=== PATIENT | male | born 1970 | race African-American/Black ===

== ENCOUNTER 2016-11-10 14:35 | Inpatient (IN) | payer BC, OTHER ==
[~2016-11-10] VITALS: Ht 172.7 cm; Wt 63.0 kg
[~2016-11-10 14:35] MED LIST: UNKNOWN BP MEDS
[2016-11-10] MEDS ORDERED: SODIUM CHLORIDE 0.9% 1,000 ML IV ONE (15:24)
[2016-11-10] MEDS ORDERED: PIPERACILLIN/TAZ 3.375G PREMIX 50 ML IV ONE (15:30)
[2016-11-10] MEDS ORDERED: METRONIDAZOLE 500 MG PREMIX 100 ML IV ONE (15:30)
[2016-11-10 15:50] LABS: BASOPHILS % 0.8 % (0.0-2.0); DIFFERENTIAL COMMENT 0; EOSINOPHILS % 0.2 % (0.0-5.0); HEMATOCRIT. 35.2 % (42.0-52.0); HEMOGLOBIN. 12.1 g/dL (14.0-18.0); LYMPHOCYTES % 24.6 % (20.0-50.0); MEAN CORPUSCULAR HEMOGLOBIN 34.4 pg (28.0-32.0); MEAN CORPUSCULAR HGB CONC 34.3 g/dL (31.0-37.0); MEAN CORPUSCULAR VOLUME 100.1 fL (80.0-94.0); MEAN PLATELET VOLUME 8.5 fl (7.4-10.4); MONOCYTES % 13.7 % (2.0-8.0); NEUTROPHILS % 60.7 % (40.0-76.0); PLATELET 193 x1000/uL (130-400); RED BLOOD CELL COUNT 3.52 mill/uL (4.7-6.1); RED CELL DISTRIBUTION WIDTH 15.2 % (11.6-14.6)
[2016-11-10 15:55] LABS: PROTHROMBIN TIME 10.5 sec
[2016-11-10 15:57] LABS: ALBUMIN 2.8 g/dL (3.4-5.0); ANION GAP 13; CALCIUM 8.4 mg/dL (8.5-10.1); CARBON DIOXIDE 28 mEq/L (21-32); CHLORIDE 104 mEq/L (98-107); INDEX HEMOLYSI 1 (1-3); INDEX ICTERIC 1 (1-4); INDEX LIPEMIC 1 (1-3); LIPASE 408 IU/L (73-393); UREA NITROGEN BLOOD 13 mg/dL (7-21)
[2016-11-10 16:03] LABS: LACTIC ACID 2.3 mmol/L (0.4-2.0)
[2016-11-10 16:04] LABS: ALANINE AMINOTRANSFERASE 64 IU/L (13-61); ETHANOL BLOOD 52 mg/dL; eGFR > 60 mL/min (>60)
[2016-11-10 16:05] LABS: NT PRO B-TYPE NATRIURETIC PEP 54 pg/mL (5-125); TROPONIN I < 0.02 ng/mL (0.00-0.04)
[2016-11-10 17:49] LABS: CLARITY URINE CLEAR (CLEAR); COLOR URINE YELLOW (YELLOW); GLUCOSE URINE NEGATIVE (NEGATIVE); KETONES URINE NEGATIVE (NEGATIVE); LEUKOCYTE ESTERASE URINE NEGATIVE (NEGATIVE); NITRITE URINE NEGATIVE (NEGATIVE); OCCULT BLOOD URINE NEGATIVE (NEGATIVE); PH URINE 5.5 (4.5-8.0); PROTEIN URINE 3+ (NEGATIVE); SPECIFIC GRAVITY URINE 1.018 (1.005-1.030); UROBILINOGEN URINE 0.2 E.U./dL (0.2-1.0)
[2016-11-10 18:05] LABS: *AMPHETAMINES SCREEN URINE NEGATIVE (NEGATIVE); *BARBITURATES SCREEN URINE NEGATIVE (NEGATIVE); *BENZODIAZEPINES SCREEN URINE NEGATIVE (NEGATIVE); *COCAINE SCREEN URINE NEGATIVE (NEGATIVE); CANNABINOID URINE SCREEN PRESUMTIVE POSITIVE (NEGATIVE); ECSTASY MDMA SCREEN URINE NEGATIVE (NEGATIVE); METHADONE URINE SCREEN NEGATIVE (NEGATIVE); OPIATES URINE SCREEN NEGATIVE (NEGATIVE); PHENCYCLIDINE URINE SCREEN NEGATIVE (NEGATIVE)
[2016-11-10 18:11] LABS: BACTERIA URINE TRACE; RBC URINE NONE SEEN /hpf (0-2); SQUAMOUS EPITHELIAL CELL URINE RARE /lpf (RARE/1+); WBC URINE 0-2 /hpf (0-2)
[2016-11-10] MEDS ORDERED: SODIUM CHLORIDE 0.45% 1,000 ML IV SCH (18:14)
[2016-11-10] MEDS ORDERED: IPRATROPIUM/ALBUTEROL 0.5-3(2.5)MG/3ML NEB INH PRN (18:15)
[2016-11-10] MEDS ORDERED: CLONIDINE 0.1MG TABLET PO PRN (18:15)
[2016-11-10] MEDS ORDERED: ACETAMINOPHEN 650MG/20.3ML UDC GT PRN (18:15)
[2016-11-10] MEDS ORDERED: DOCUSATE SODIUM 100MG CAPSULE PO PRN (18:15)
[2016-11-10] MEDS ORDERED: HYDROCODONE/ACETAMINOPHEN 5/325MG TABLET PO PRN (18:15)
[2016-11-10] MEDS ORDERED: ONDANSETRON HCL 4MG/2ML VIAL IV PRN (18:15)
[2016-11-10] MEDS ORDERED: ACETAMINOPHEN 650MG SUPP PR PRN (18:15)
[2016-11-10] MEDS ORDERED: ACETAMINOPHEN 325MG TABLET PO PRN (18:15)
[2016-11-10] MEDS ORDERED: MAGNESIUM/ALUMINUM HYDROXIDE/SIMETHICONE 30ML UDC PO PRN (18:15)
[2016-11-10] MEDS ORDERED: GUAIFENESIN 200MG/10ML SUGAR FREE UDC PO PRN (18:15)
[2016-11-10] MEDS ORDERED: LABETALOL 5MG/ML SYR 20 MG/4 ML SYRINGE IV ONE (19:30)
[2016-11-10] MEDS ORDERED: LEVOFLOXACIN 500MG PREMIX 100 ML IV NR (20:00)
[2016-11-10] MEDS ORDERED: SODIUM CHLORIDE 0.9% INJ 3ML FLUSH IVF SCH (22:00)
[2016-11-10 22:30] VITALS: BP 143/97
[2016-11-10] MEDS ORDERED: PANTOPRAZOLE 80 MG in SODIUM CHLORIDE 0.9% 100 ML IV SCH ×2 (22:30→23:30)
[2016-11-10] MEDS: SODIUM CHLORIDE 0.45% 1000ML IV SCH (23:06)
[2016-11-10] MEDS: METRONIDAZOLE 500 MG PREMIX 100 ML IV SCH (23:18)
[2016-11-11] VITALS: BP 148/93
[2016-11-11] MEDS: PANTOPRAZOLE 80 MG in SODIUM CHLORIDE 0.9% 100 ML IV SCH ×3 (03:06→22:08)
[2016-11-11 05:58] LABS: EOSINOPHILS % 1.1 % (0.0-5.0); HEMATOCRIT. 33.5 % (42.0-52.0); HEMOGLOBIN. 11.4 g/dL (14.0-18.0); MEAN CORPUSCULAR HEMOGLOBIN 33.6 pg (28.0-32.0); MEAN CORPUSCULAR HGB CONC 33.8 g/dL (31.0-37.0); MEAN CORPUSCULAR VOLUME 99.4 fL (80.0-94.0); MEAN PLATELET VOLUME 9.5 fl (7.4-10.4); MONOCYTES % 13.4 % (2.0-8.0); NEUTROPHILS % 34.5 % (40.0-76.0); PLATELET 186 x1000/uL (130-400); RED BLOOD CELL COUNT 3.37 mill/uL (4.7-6.1); RED CELL DISTRIBUTION WIDTH 14.5 % (11.6-14.6); WHITE BLOOD COUNT 4.5 x1000/uL (4.5-11.0)
[2016-11-11] MEDS: SODIUM CHLORIDE 0.9% INJ 3ML FLUSH IVF SCH ×3 (06:14→22:09)
[2016-11-11 06:37] LABS: ALANINE AMINOTRANSFERASE 48 IU/L (13-61); ALBUMIN 2.3 g/dL (3.4-5.0); ANION GAP 12; CALCIUM 7.8 mg/dL (8.5-10.1); CARBON DIOXIDE 28 mEq/L (21-32); CHLORIDE 106 mEq/L (98-107); HDL CHOLESTEROL 133 mg/dL (40-59); INDEX HEMOLYSI 1 (1-3); INDEX ICTERIC 1 (1-4); INDEX LIPEMIC 1 (1-3); LDL CHOLESTEROL 130 mg/dL (5-100); TRIGLYCERIDE 153 mg/dL (0-150); UREA NITROGEN BLOOD 10 mg/dL (7-21); eGFR > 60 mL/min (>60)
[2016-11-11 08:00] VITALS: BP 140/89
[2016-11-11] MEDS: THIAMINE HCL 100MG TABLET PO SCH (08:39)
[2016-11-11] MEDS: FOLIC ACID 1MG TABLET PO SCH (08:39)
[2016-11-11] MEDS: METRONIDAZOLE 500 MG PREMIX 100 ML IV SCH ×2 (10:07→18:14)
[2016-11-11 12:00] VITALS: BP 153/93
[2016-11-11] MEDS: SODIUM CHLORIDE 0.45% 1000ML IV SCH (15:37)
[2016-11-11 16:00] VITALS: BP 130/84
[2016-11-11 20:00] VITALS: BP 123/78
[2016-11-11] MEDS ORDERED: LEVOFLOXACIN 500MG PREMIX 100 ML IV SCH ×2 (20:00→23:00)
[2016-11-11] MEDS: CHLORDIAZEPOXIDE 25MG CAPSULE PO SCH (22:09)
[2016-11-12] VITALS (7 sets, daily range): BP systolic 112–135; BP diastolic 74–89
[2016-11-12] MEDS: METRONIDAZOLE 500 MG PREMIX 100 ML IV SCH ×3 (04:37→18:10)
[2016-11-12] MEDS: SODIUM CHLORIDE 0.9% INJ 3ML FLUSH IVF SCH ×3 (07:01→21:37)
[2016-11-12] MEDS: CHLORDIAZEPOXIDE 25MG CAPSULE PO SCH ×3 (07:01→21:37)
[2016-11-12] MEDS: SODIUM CHLORIDE 0.45% 1000ML IV SCH (08:20)
[2016-11-12] MEDS: THIAMINE HCL 100MG TABLET PO SCH (08:39)
[2016-11-12] MEDS: FOLIC ACID 1MG TABLET PO SCH (08:39)
[2016-11-12] MEDS: PANTOPRAZOLE 80 MG in SODIUM CHLORIDE 0.9% 100 ML IV SCH (09:21)
[2016-11-12 16:13] LABS: BG BASE EXCESS -1.2 mmol/L (-2.0-2.0); BG CARBOXYHEMOGLOBIN 0.3 % (0.5-1.5); BG DEOXYHEMOGLOBIN 3.2 % (0.0-5.0); BG HCO3 ACT 22.8 mmol/L (22.0-26.0); BG METHEMOGLOBIN 0.2 % (0.0-1.5); BG OXYGEN SATURATION 96.8 % (92.0-98.5); BG OXYHEMOGLOBIN 96.3 % (94.0-97.0); BG PCO2 36.1 mmHg (35.0-45.0); BG PH 7.419 (7.350-7.450); BG PO2 93.7 mmHg (75.0-100.0); BG SAMPLE SITE RIGHT RADIAL; BG TOTAL HEMOGLOBIN 12.3 g/dL (12.0-18.0); BG VENT MODE ROOM AIR
[2016-11-12 17:02] LABS: HEMATOCRIT. 34.7 % (42.0-52.0); HEMOGLOBIN. 11.9 g/dL (14.0-18.0); MEAN CORPUSCULAR HEMOGLOBIN 34.7 pg (28.0-32.0); MEAN CORPUSCULAR HGB CONC 34.2 g/dL (31.0-37.0); MEAN CORPUSCULAR VOLUME 101.4 fL (80.0-94.0); MEAN PLATELET VOLUME 9.1 fl (7.4-10.4); PLATELET 199 x1000/uL (130-400); RED BLOOD CELL COUNT 3.42 mill/uL (4.7-6.1); RED CELL DISTRIBUTION WIDTH 14.7 % (11.6-14.6); WHITE BLOOD COUNT 4.8 x1000/uL (4.5-11.0)
[2016-11-12 17:06] LABS: DIFFERENTIAL COMMENT 1
[2016-11-12 17:17] LABS: ALANINE AMINOTRANSFERASE 43 IU/L (13-61); ALBUMIN 2.3 g/dL (3.4-5.0); AMYLASE 77 IU/L (25-115); ANION GAP 10; CARBON DIOXIDE 28 mEq/L (21-32); CHLORIDE 105 mEq/L (98-107); INDEX HEMOLYSI 2 (1-3); INDEX ICTERIC 1 (1-4); INDEX LIPEMIC 1 (1-3); LIPASE 441 IU/L (73-393); UREA NITROGEN BLOOD 6 mg/dL (7-21); eGFR > 60 mL/min (>60)
[2016-11-12 18:30] LABS: ATYPICAL LYMPHOCYTES 2; PLATELET ESTIMATE NORMAL
[2016-11-12 18:31] LABS: ANISOCYTOSIS 2+; HYPOCHROMASIA 1+
[2016-11-12 18:32] LABS: STOMATOCYTES 1+
[2016-11-13] MEDS ORDERED: METRONIDAZOLE 500MG TABLET PO SCH (06:00)
[2016-11-13] MEDS ORDERED: LEVOFLOXACIN 500MG TABLET PO SCH (11:00)
[2016-11-14 13:12] LABS: ATYPICAL P-ANCA <1:20 titer (Neg:<1:20); CYTOPLASMIC C-ANCA <1:20 titer (Neg:<1:20); PERINUCLEAR P-ANCA <1:20 titer (Neg:<1:20)
[2016-11-15 13:18] LABS: ANTI-MYELOPEROXIDASE AB < 9.0 U/mL (0.0-9.0); ANTI-PROTEINASE 3 ABS < 3.5 U/mL (0.0-3.5)
== END 2016-11-12 22:33 | disposition home or self-care (01) | DRG 282 ==
LOC: ER 15:43 → 6EST 18:06
PROVIDERS: ADMIT Family Medicine; ATTEND Family Medicine
DX: K85.90 Acute pancreatitis without necrosis or infection, unspecified (principal); E43 Unspecified severe protein-calorie malnutrition; E87.2 Acidosis; D63.8 Anemia in other chronic diseases classified elsewhere; E11.9 Type 2 diabetes mellitus without complications; I10 Essential (primary) hypertension; J45.909 Unspecified asthma, uncomplicated; F10.10 Alcohol abuse, uncomplicated; F17.200 Nicotine dependence, unspecified, uncomplicated; Z68.21 Body mass index [BMI] 21.0-21.9, adult
CPT/HCPCS: 36415; 36600; 71010; 74176; 80053; 80061; 80305; 81001; 82150; 82375; 82805; 83520; 83605; 83690; 83880; 84484; 85025; 85610; 86140; 86256; 87040; 87086; 93005; 96365; 96367; 96375; 99285; 99406; C9113; G0482; J1956; J2543; J3490; J7030; J7050

== ENCOUNTER 2018-03-26 11:34 | Emergency (ER) | payer SELFPAY ==
[~2018-03-26] VITALS: Ht 172.7 cm; Wt 60.0 kg
[2018-03-26] MEDS ORDERED: KETOROLAC 60MG/2ML VIAL IM STA (15:17)
[2018-03-26 16:02] LABS: BASOPHILS % 0.7 % (0.0-2.0); EOSINOPHILS % 1.6 % (0.0-5.0); HEMATOCRIT. 39.5 % (42.0-52.0); HEMOGLOBIN. 13.6 g/dL (14.0-18.0); LYMPHOCYTES % 43.6 % (20.0-50.0); MEAN CORPUSCULAR HEMOGLOBIN 34.4 pg (28.0-32.0); MEAN CORPUSCULAR VOLUME 100.1 fL (80.0-94.0); MEAN PLATELET VOLUME 8.2 fl (7.4-10.4); MONOCYTES % 12.8 % (2.0-8.0); NEUTROPHILS % 41.3 % (40.0-76.0); PLATELET 242 x1000/uL (130-400); RED BLOOD CELL COUNT 3.94 mill/uL (4.7-6.1); RED CELL DISTRIBUTION WIDTH 13.9 % (11.6-14.6)
[2018-03-26 16:04] LABS: CHLORIDE 105 mEq/L (98-107)
[2018-03-26] MEDS ORDERED: CLONIDINE 0.1MG TABLET PO ONE (18:00)
[2018-03-26 19:23] VITALS: BP 161/100
== END 2018-03-26 19:47 | disposition home or self-care (01) ==
LOC: ER 12:01
DX: M10.9 Gout, unspecified (principal); L03.115 Cellulitis of right lower limb; J45.909 Unspecified asthma, uncomplicated; I10 Essential (primary) hypertension; F17.200 Nicotine dependence, unspecified, uncomplicated; Z88.9 Allergy status to unspecified drugs, medicaments and biological substances
CPT/HCPCS: 36415; 73630; 80048; 84550; 85025; 96372; 99285; J1885; Z7610

== ENCOUNTER 2018-03-31 12:16 | Emergency (ER) | payer SELFPAY ==
[~2018-03-31] VITALS: Ht 172.7 cm; Wt 64.3 kg
[2018-03-31 12:20] VITALS: BP 160/92
== END 2018-03-31 20:47 | disposition home or self-care (01) ==
LOC: ER 15:44
DX: M10.9 Gout, unspecified (principal); J45.909 Unspecified asthma, uncomplicated; I10 Essential (primary) hypertension; F17.200 Nicotine dependence, unspecified, uncomplicated
CPT/HCPCS: 99281

== ENCOUNTER 2018-08-10 13:07 | Inpatient (IN) | payer SELFPAY ==
[~2018-08-10] VITALS: Ht 172.7 cm; Wt 65.8 kg
[2018-08-10] MEDS ORDERED: ALBUTEROL (0.083%) 2.5MG/3ML NEB HHN ONE (17:15)
[2018-08-10] MEDS ORDERED: PREDNISONE 20MG TABLET PO ONE (17:15)
[2018-08-10] MEDS ORDERED: LEVOFLOXACIN 750MG PREMIX 150 ML IV ONE (17:45)
[2018-08-10 18:14] LABS: BASOPHILS % 0.6 % (0.0-2.0); EOSINOPHILS % 0.9 % (0.0-5.0); HEMATOCRIT. 40.7 % (42.0-52.0); HEMOGLOBIN. 13.8 g/dL (14.0-18.0); LYMPHOCYTES % 16.3 % (20.0-50.0); MEAN CORPUSCULAR HEMOGLOBIN 34.4 pg (28.0-32.0); MEAN CORPUSCULAR VOLUME 101.3 fL (80.0-94.0); MEAN PLATELET VOLUME 8.7 fl (7.4-10.4); MONOCYTES % 14.3 % (2.0-8.0); NEUTROPHILS % 67.9 % (40.0-76.0); PLATELET 371 x1000/uL (130-400); RED BLOOD CELL COUNT 4.01 mill/uL (4.7-6.1); RED CELL DISTRIBUTION WIDTH 14.8 % (11.6-14.6)
[2018-08-10] MEDS ORDERED: SODIUM CHLORIDE 0.9% 1000ML BAG (SEPSIS BOLUS) IV ONE (18:15)
[2018-08-10 18:21] LABS: CHLORIDE 100 mEq/L (98-107)
[2018-08-10] MEDS ORDERED: HYDRALAZINE 20MG/ML VIAL IV ONE (18:30)
[2018-08-10] MEDS ORDERED: ASPIRIN 81MG TABLET PO ONE (19:45)
[2018-08-10] MEDS ORDERED: ACETAMINOPHEN 325MG TABLET PO PRN (19:45)
[2018-08-10] MEDS ORDERED: GUAIFENESIN 200MG/10ML SUGAR FREE UDC PO PRN (20:00)
[2018-08-10] MEDS ORDERED: HYDROCODONE/ACETAMINOPHEN 10/325MG TABLET PO PRN (20:00)
[2018-08-10] MEDS ORDERED: NA PHOS,M-B/NA PHOS,DI-BA ENEMA 118ML PR PRN (20:00)
[2018-08-10] MEDS ORDERED: HYDROCODONE/ACETAMINOPHEN 5/325MG TABLET PO PRN (20:00)
[2018-08-10] MEDS ORDERED: ONDANSETRON HCL 4MG/2ML INJ IV PRN (20:00)
[2018-08-10] MEDS ORDERED: DIPHENHYDRAMINE 50MG/ML VIAL IV PRN (20:00)
[2018-08-10] MEDS ORDERED: MAGNESIUM/ALUMINUM HYDROXIDE/SIMETHICONE 30ML UDC PO PRN (20:00)
[2018-08-10] MEDS ORDERED: ACETAMINOPHEN 650MG SUPP PR PRN (20:00)
[2018-08-10] MEDS ORDERED: CLONIDINE 0.1MG TABLET PO PRN (20:00)
[2018-08-10] MEDS ORDERED: IPRATROPIUM/ALBUTEROL 0.5-3(2.5)MG/3ML NEB INH PRN (20:00)
[2018-08-10] MEDS ORDERED: ACETAMINOPHEN 650MG/20.3ML UDC GT PRN (20:00)
[2018-08-10] MEDS ORDERED: DOCUSATE SODIUM 100MG CAPSULE PO PRN (20:00)
[2018-08-10] MEDS: SODIUM CHLORIDE 0.45% 1,000 ML IV SCH ×2 (20:17→22:34)
[2018-08-10 20:22] LABS: CLARITY URINE CLEAR (CLEAR); COLOR URINE YELLOW (YELLOW); KETONES URINE TRACE (NEGATIVE); LEUKOCYTE ESTERASE URINE NEGATIVE (NEGATIVE); NITRITE URINE NEGATIVE (NEGATIVE); OCCULT BLOOD URINE NEGATIVE (NEGATIVE); PH URINE 5.5 (4.5-8.0); PROTEIN URINE 4+ (NEGATIVE); SPECIFIC GRAVITY URINE 1.017 (1.005-1.030)
[2018-08-10 20:48] LABS: *AMPHETAMINES SCREEN URINE NEGATIVE (NEGATIVE); *BARBITURATES SCREEN URINE NEGATIVE (NEGATIVE); *BENZODIAZEPINES SCREEN URINE NEGATIVE (NEGATIVE); *COCAINE SCREEN URINE NEGATIVE (NEGATIVE); METHADONE URINE SCREEN NEGATIVE (NEGATIVE); OPIATES URINE SCREEN NEGATIVE (NEGATIVE)
[2018-08-10 20:49] LABS: CANNABINOID URINE SCREEN PRESUMTIVE POSITIVE (NEGATIVE); PHENCYCLIDINE URINE SCREEN NEGATIVE (NEGATIVE)
[2018-08-10 21:15] VITALS: BP 142/99
[2018-08-10] MEDS ORDERED: OLME40TA18 PO (21:23)
[2018-08-10 22:19] VITALS: BP 142/99
[2018-08-10] MEDS: SODIUM CHLORIDE 0.9% INJ 3ML FLUSH IVF SCH (22:35)
[2018-08-10] MEDS ORDERED: CEFTRIAXONE 1 G PREMIX 50 ML IV SCH (23:00)
[2018-08-11] VITALS (7 sets, daily range): BP systolic 111–148; BP diastolic 66–90
[2018-08-11] MEDS ORDERED: AZITHROMYCIN 500 MG in DEXT 5% WATER 250 ML IV SCH ×2
[2018-08-11] MEDS: IPRATROPIUM/ALBUTEROL 0.5-3(2.5)MG/3ML NEB INH SCH ×4 (02:20→19:59)
[2018-08-11] MEDS: SODIUM CHLORIDE 0.9% INJ 3ML FLUSH IVF SCH ×3 (05:11→22:00)
[2018-08-11 07:22] LABS: BASOPHILS % 0.5 % (0.0-2.0); EOSINOPHILS % 0.1 % (0.0-5.0); HEMATOCRIT. 35.8 % (42.0-52.0); HEMOGLOBIN. 12.3 g/dL (14.0-18.0); LYMPHOCYTES % 10.6 % (20.0-50.0); MEAN CORPUSCULAR HEMOGLOBIN 34.6 pg (28.0-32.0); MEAN CORPUSCULAR VOLUME 100.8 fL (80.0-94.0); MEAN PLATELET VOLUME 8.9 fl (7.4-10.4); MONOCYTES % 9.6 % (2.0-8.0); NEUTROPHILS % 79.2 % (40.0-76.0); PLATELET 345 x1000/uL (130-400); RED BLOOD CELL COUNT 3.55 mill/uL (4.7-6.1); RED CELL DISTRIBUTION WIDTH 14.6 % (11.6-14.6)
[2018-08-11 07:47] LABS: CHLORIDE 102 mEq/L (98-107)
[2018-08-11 08:00] LABS: LDL CHOLESTEROL 105 mg/dL (5-100)
[2018-08-11 08:02] LABS: HDL CHOLESTEROL 48 mg/dL (40-59)
[2018-08-11] MEDS: ENOXAPARIN 40MG/0.4ML SYR SUBCUT SCH (10:00)
[2018-08-11] MEDS: SODIUM CHLORIDE 0.45% 1,000 ML IV SCH (17:56)
[2018-08-12] MEDS ORDERED: AZITHROMYCIN 500 MG in DEXT 5% WATER 250 ML IV SCH ×2
[2018-08-12] MEDS ORDERED: CEFTRIAXONE 1 G PREMIX 50 ML IV SCH (01:00)
[2018-08-12] MEDS: IPRATROPIUM/ALBUTEROL 0.5-3(2.5)MG/3ML NEB INH SCH (02:15)
[2018-08-12] MEDS: SODIUM CHLORIDE 0.9% INJ 3ML FLUSH IVF SCH (06:15)
[2018-08-12 08:00] VITALS: BP 145/98
[2018-08-12] MEDS: ENOXAPARIN 40MG/0.4ML SYR SUBCUT SCH (08:42)
[2018-08-12] MEDS ORDERED: AZIT500T2 MT (09:45)
[2018-08-12 10:23] VITALS: BP 145/98
== END 2018-08-12 11:10 | disposition home or self-care (01) | DRG 140 ==
LOC: ER 13:07 → 6WST 19:42 → EDBEDREQ 19:53 → EDBEDREQTM 19:53 → ENRESERV 20:08
PROVIDERS: ADMIT Family Medicine; ATTEND Family Medicine
DX: J44.0 Chronic obstructive pulmonary disease with (acute) lower respiratory infection (principal); J12.9 Viral pneumonia, unspecified; J44.1 Chronic obstructive pulmonary disease with (acute) exacerbation; D53.9 Nutritional anemia, unspecified; I10 Essential (primary) hypertension; F17.210 Nicotine dependence, cigarettes, uncomplicated; J45.20 Mild intermittent asthma, uncomplicated; Z87.09 Personal history of other diseases of the respiratory system; M10.9 Gout, unspecified
CPT/HCPCS: 36415; 71045; 80061; 80305; 83605; 83880; 84484; 93005; 94640; 96365; 99285; G0482; J0360; J0456; J0696; J1650; J1956; J7030; J7060; J7512; J7611; J7620

== ENCOUNTER 2020-10-14 13:08 | Inpatient (IN) | payer MEDICAID ==
[~2020-10-14] VITALS: Ht 172.7 cm; Wt 59.0 kg
[~2020-10-14 13:08] MED LIST changes: +AZIT500T2 MT; +OLME40TA18 PO; -UNKNOWN BP MEDS
[2020-10-14 14:27] LABS: BASOPHILS % 0.7 % (0.0-2.0); EOSINOPHILS % 2.6 % (0.0-5.0); HEMATOCRIT. 33.2 % (42.0-52.0); HEMOGLOBIN. 11.1 g/dL (14.0-18.0); LYMPHOCYTES % 30.6 % (20.0-50.0); MEAN CORPUSCULAR HEMOGLOBIN 33.8 pg (28.0-32.0); MEAN CORPUSCULAR VOLUME 100.8 fL (80.0-94.0); MEAN PLATELET VOLUME 8.8 fl (7.4-10.4); MONOCYTES % 8.5 % (2.0-8.0); NEUTROPHILS % 57.6 % (40.0-76.0); PLATELET 528 x1000/uL (130-400); RED BLOOD CELL COUNT 3.29 mill/uL (4.7-6.1); RED CELL DISTRIBUTION WIDTH 15.5 % (11.6-14.6)
[2020-10-14 14:33] LABS: CHLORIDE 101 mEq/L (98-107)
[2020-10-14] MEDS ORDERED: DEXTROSE 50% WATER 50ML SYRINGE IV NR ×2 (15:00→20:45)
[2020-10-14] MEDS ORDERED: DEXTROSE 50% WATER 50ML SYRINGE IV ONE ×2 (15:00→16:45)
[2020-10-14 15:31] LABS: CLARITY URINE CLEAR (CLEAR); COLOR URINE YELLOW (YELLOW); KETONES URINE NEGATIVE (NEGATIVE); LEUKOCYTE ESTERASE URINE NEGATIVE (NEGATIVE); NITRITE URINE NEGATIVE (NEGATIVE); OCCULT BLOOD URINE NEGATIVE (NEGATIVE); PH URINE 7.5 (4.5-8.0); PROTEIN URINE 2+ (NEGATIVE); SPECIFIC GRAVITY URINE 1.009 (1.005-1.030); UROBILINOGEN URINE 0.2 E.U./dL (0.2-1.0)
[2020-10-14 15:56] LABS: INR 1.1
[2020-10-14] MEDS ORDERED: MORPHINE SULFATE 4 MG/ML CPJ (NOT FOR IM USE) IV ONE (16:00)
[2020-10-14] MEDS ORDERED: ONDANSETRON HCL 4MG/2ML INJ IV PRN (17:30)
[2020-10-14] MEDS ORDERED: ACETAMINOPHEN 325MG TABLET PO PRN (17:30)
[2020-10-14] MEDS: DEXT 5%/0.45% NACL 1000ML 1,000 ML IV SCH ×2 (19:11→20:15)
[2020-10-14] MEDS ORDERED: HYDRALAZINE 20MG/ML VIAL IV PRN (19:15)
[2020-10-14] MEDS: AMLODIPINE 10MG TABLET PO SCH (20:14)
[2020-10-14 22:25] VITALS: BP 173/103
[2020-10-14 22:35] VITALS: BP 173/103
[2020-10-15] VITALS: BP 174/104
[2020-10-15 02:00] VITALS: BP 174/104
[2020-10-15] MEDS: HYDROMORPHONE HCL/PF 2MG/ML CPJ IV PRN ×2 (06:56→11:47)
[2020-10-15 07:00] LABS: CHLORIDE 102 mEq/L (98-107)
[2020-10-15 07:19] LABS: BASOPHILS % 0.8 % (0.0-2.0); EOSINOPHILS % 4.8 % (0.0-5.0); HEMOGLOBIN. 11.7 g/dL (14.0-18.0); LYMPHOCYTES % 32.2 % (20.0-50.0); MEAN CORPUSCULAR HEMOGLOBIN 33.7 pg (28.0-32.0); MEAN CORPUSCULAR VOLUME 100.3 fL (80.0-94.0); MEAN PLATELET VOLUME 8.3 fl (7.4-10.4); NEUTROPHILS % 52.2 % (40.0-76.0); PLATELET 491 x1000/uL (130-400); RED BLOOD CELL COUNT 3.48 mill/uL (4.7-6.1); RED CELL DISTRIBUTION WIDTH 15.3 % (11.6-14.6)
[2020-10-15 08:00] VITALS: BP 154/92
[2020-10-15] MEDS: AMLODIPINE 10MG TABLET PO SCH (09:29)
[2020-10-15 12:00] VITALS: BP 142/89
[2020-10-15] MEDS ORDERED: POTASSIUM CHLORIDE 20MEQ TABLET SR PO SCH (12:15)
[2020-10-15 15:08] VITALS: BP 142/89
[2020-10-15 16:00] VITALS: BP 150/97
== END 2020-10-15 17:00 | disposition home or self-care (01) | DRG 282 ==
LOC: ER 13:08 → 8WST 15:47 → EDBEDREQSVC 17:35 → ENRESERV 21:14
PROVIDERS: ADMIT Hospitalist; ATTEND Hospitalist
DX: K85.90 Acute pancreatitis without necrosis or infection, unspecified (principal); E16.2 Hypoglycemia, unspecified; I10 Essential (primary) hypertension; J45.909 Unspecified asthma, uncomplicated; M10.9 Gout, unspecified; F10.11 Alcohol abuse, in remission; Z79.2 Long term (current) use of antibiotics; Z79.899 Other long term (current) drug therapy; E43 Unspecified severe protein-calorie malnutrition
CPT/HCPCS: 36415; 71045; 76705; 80053; 81003; 82962; 83605; 83880; 84484; 85025; 93005; 99285; J0360; J1170; J2270

== ENCOUNTER 2020-10-19 13:21 | Emergency (ER) | payer MEDICAID ==
[~2020-10-19] VITALS: Ht 172.7 cm; Wt 59.0 kg
[2020-10-19 14:34] LABS: BASOPHILS % 0.6 % (0.0-2.0); HEMATOCRIT. 39.2 % (42.0-52.0); HEMOGLOBIN. 13.3 g/dL (14.0-18.0); LYMPHOCYTES % 26.2 % (20.0-50.0); MEAN CORPUSCULAR HEMOGLOBIN 34.1 pg (28.0-32.0); MEAN CORPUSCULAR VOLUME 100.4 fL (80.0-94.0); MEAN PLATELET VOLUME 7.4 fl (7.4-10.4); MONOCYTES % 9.8 % (2.0-8.0); NEUTROPHILS % 62.4 % (40.0-76.0); PLATELET 491 x1000/uL (130-400)
[2020-10-19 14:42] LABS: CHLORIDE 101 mEq/L (98-107)
[2020-10-19 14:47] LABS: ETHANOL BLOOD < 10 mg/dL
[2020-10-19] MEDS: FAMOTIDINE 20MG/2ML VIAL IV NR ×3 (16:03→16:26)
[2020-10-19 16:08] LABS: *AMPHETAMINES SCREEN URINE NEGATIVE (NEGATIVE); *BARBITURATES SCREEN URINE NEGATIVE (NEGATIVE); *BENZODIAZEPINES SCREEN URINE NEGATIVE (NEGATIVE); *COCAINE SCREEN URINE NEGATIVE (NEGATIVE); METHADONE URINE SCREEN NEGATIVE (NEGATIVE); OPIATES URINE SCREEN NEGATIVE (NEGATIVE); PHENCYCLIDINE URINE SCREEN NEGATIVE (NEGATIVE)
[2020-10-19] MEDS: ASPIRIN 81MG EC TABLET PO NR ×3 (16:08→16:26)
[2020-10-19 16:09] LABS: CANNABINOID URINE SCREEN NEGATIVE (NEGATIVE)
[2020-10-19] MEDS: KETOROLAC 15MG/ML VIAL IV NR ×4 (16:09→16:26)
[2020-10-19 18:30] VITALS: BP 142/90
== END 2020-10-19 20:05 | disposition home or self-care (01) ==
LOC: ER 13:21
DX: R10.13 Epigastric pain (principal); I10 Essential (primary) hypertension; F10.10 Alcohol abuse, uncomplicated; J45.909 Unspecified asthma, uncomplicated; Z98.890 Other specified postprocedural states; Y90.0 Blood alcohol level of less than 20 mg/100 ml
CPT/HCPCS: 36415; 71045; 80053; 80305; 80320; 83690; 83880; 84484; 85025; 93005; 96374; 96375; 99285; J1885; J3490; Z7610; G0480

== ENCOUNTER 2021-10-23 17:00 | Inpatient (IN) | payer MEDICAID ==
[~2021-10-23] VITALS: Ht 172.7 cm; Wt 66.0 kg
[2021-10-23] MEDS ORDERED: KETOROLAC 30MG/ML VIAL IV STA (22:50)
[2021-10-23] MEDS ORDERED: ONDANSETRON HCL 4MG/2ML INJ IV STA (22:50)
[2021-10-23] MEDS ORDERED: SODIUM CHLORIDE 0.9% 1,000 ML IV ONE (23:00)
[2021-10-23 23:21] LABS: CHLORIDE 106 mEq/L (98-107)
[2021-10-23 23:26] LABS: BASOPHILS % 0.7 % (0.0-2.0); EOSINOPHILS % 0.7 % (0.0-5.0); HEMATOCRIT. 31.8 % (42.0-52.0); HEMOGLOBIN. 11.2 g/dL (14.0-18.0); LYMPHOCYTES % 14.8 % (20.0-50.0); MEAN CORPUSCULAR HEMOGLOBIN 37.5 pg (28.0-32.0); MEAN CORPUSCULAR VOLUME 106.4 fL (80.0-94.0); MEAN PLATELET VOLUME 7.6 fl (7.4-10.4); MONOCYTES % 9.5 % (2.0-8.0); NEUTROPHILS % 74.3 % (40.0-76.0); PLATELET 395 x1000/uL (130-400); RED BLOOD CELL COUNT 2.99 mill/uL (4.7-6.1)
[2021-10-23] MEDS ORDERED: MORPHINE SULFATE 2 MG/ML CPJ (NOT FOR IM USE) IV ONE (23:45)
[2021-10-23 23:49] LABS: CLARITY URINE CLEAR (CLEAR); COLOR URINE YELLOW (YELLOW); KETONES URINE 1+ (NEGATIVE); LEUKOCYTE ESTERASE URINE NEGATIVE (NEGATIVE); NITRITE URINE NEGATIVE (NEGATIVE); OCCULT BLOOD URINE 3+ (NEGATIVE); PROTEIN URINE 3+ (NEGATIVE); SPECIFIC GRAVITY URINE 1.014 (1.005-1.030); UROBILINOGEN URINE 0.2 E.U./dL (0.2-1.0)
[2021-10-24] MEDS ORDERED: FLUCONAZOLE 100MG TABLET PO NR (00:45)
[2021-10-24] MEDS ORDERED: PIPERACILLIN/TAZ 3.375G PREMIX 50 ML IV ONE (02:30)
[2021-10-24] MEDS ORDERED: MAGNESIUM/ALUMINUM HYDROXIDE/SIMETHICONE 30ML UDC PO PRN (08:15)
[2021-10-24] MEDS ORDERED: ONDANSETRON HCL 4MG/2ML INJ IV PRN (08:15)
[2021-10-24] MEDS ORDERED: NALOXONE HCL 0.4MG/ML VIAL IV PRN (08:30)
[2021-10-24] MEDS: SODIUM CHLORIDE 0.45% 1,000 ML IV SCH ×5 (08:48→23:51)
[2021-10-24] MEDS: ENOXAPARIN 40MG/0.4ML SYR SUBCUT SCH (09:16)
[2021-10-24] MEDS: CLONIDINE 0.1MG TABLET PO PRN ×2 (09:45→23:51)
[2021-10-24 16:03] LABS: BASOPHILS % 0.5 % (0.0-2.0); EOSINOPHILS % 1.3 % (0.0-5.0); HEMOGLOBIN. 9.7 g/dL (14.0-18.0); LYMPHOCYTES % 21.4 % (20.0-50.0); MEAN CORPUSCULAR HEMOGLOBIN 37.1 pg (28.0-32.0); MEAN CORPUSCULAR VOLUME 110.4 fL (80.0-94.0); MEAN PLATELET VOLUME 8.1 fl (7.4-10.4); MONOCYTES % 10.3 % (2.0-8.0); NEUTROPHILS % 66.5 % (40.0-76.0); PLATELET 318 x1000/uL (130-400); RED BLOOD CELL COUNT 2.63 mill/uL (4.7-6.1)
[2021-10-24 16:09] LABS: CHLORIDE 107 mEq/L (98-107)
[2021-10-24 16:37] LABS: PLATELET ESTIMATE NORMAL
[2021-10-24] MEDS ORDERED: VANCOMYCIN 1G PREMIX 200 ML IV NR (20:00)
[2021-10-24] MEDS: MEROPENEM 1,000 MG in SODIUM CHLORIDE 0.9% 100 ML IV SCH (21:03)
[2021-10-24] MEDS ORDERED: DEXTROSE 50% WATER 50ML SYRINGE IV ONE (22:00)
[2021-10-24 22:15] VITALS: BP 173/85
[2021-10-24] MEDS ORDERED: DEXTROSE 50% WATER 50ML SYRINGE IV NR (22:15)
[2021-10-24 22:34] VITALS: BP 173/85
[2021-10-25] VITALS (7 sets, daily range): BP systolic 143–164; BP diastolic 84–99
[2021-10-25] MEDS: MICAFUNGIN 100 MG in SODIUM CHLORIDE 0.9% 100 ML IV SCH ×2 (01:24→21:16)
[2021-10-25] MEDS ORDERED: DEXTROSE 50% WATER 50ML SYRINGE IV ONE (06:45)
[2021-10-25 07:51] LABS: BASOPHILS % 0.4 % (0.0-2.0); EOSINOPHILS % 1.1 % (0.0-5.0); HEMATOCRIT. 27.3 % (42.0-52.0); HEMOGLOBIN. 9.4 g/dL (14.0-18.0); LYMPHOCYTES % 20.9 % (20.0-50.0); MEAN CORPUSCULAR HEMOGLOBIN 37.4 pg (28.0-32.0); MEAN CORPUSCULAR VOLUME 108.3 fL (80.0-94.0); MEAN PLATELET VOLUME 8.1 fl (7.4-10.4); MONOCYTES % 12.7 % (2.0-8.0); NEUTROPHILS % 64.9 % (40.0-76.0); PLATELET 337 x1000/uL (130-400); RED BLOOD CELL COUNT 2.52 mill/uL (4.7-6.1)
[2021-10-25 09:22] LABS: PHOSPHORUS 2.9 mg/dL (2.5-4.9)
[2021-10-25] MEDS: MEROPENEM 1,000 MG in SODIUM CHLORIDE 0.9% 100 ML IV SCH ×2 (09:40→21:16)
[2021-10-25] MEDS: SODIUM CHLORIDE 0.45% 1,000 ML IV SCH ×3 (09:41→16:15)
[2021-10-25] MEDS: ENOXAPARIN 40MG/0.4ML SYR SUBCUT SCH (10:14)
[2021-10-25 12:26] LABS: INR 1.1; PROTHROMBIN TIME 11.5 sec (9.6-11.0)
[2021-10-25 12:46] LABS: FOLIC ACID (FOLATE) SERUM 7.3 ng/mL (>5.38)
[2021-10-25 16:28] LABS: ETHANOL BLOOD < 10 mg/dL
[2021-10-25 16:33] LABS: CREATINE KINASE 62 IU/L (39-308)
[2021-10-25] MEDS ORDERED: SODIUM CHLORIDE 45ML SPRAY NS PRN (18:00)
[2021-10-25] MEDS: HYDROCODONE/ACETAMINOPHEN 5/325MG TABLET PO PRN (18:03)
[2021-10-25 19:40] LABS: CLARITY URINE TURBID (CLEAR); COLOR URINE RED (YELLOW); KETONES URINE TRACE (NEGATIVE); LEUKOCYTE ESTERASE URINE 2+ (NEGATIVE); NITRITE URINE NEGATIVE (NEGATIVE); OCCULT BLOOD URINE 2+ (NEGATIVE); PROTEIN URINE 2+ (NEGATIVE); SPECIFIC GRAVITY URINE 1.013 (1.005-1.030); UROBILINOGEN URINE 0.2 E.U./dL (0.2-1.0)
[2021-10-25] MEDS ORDERED: DEXT 5%/0.9% NACL 1,000 ML IV SCH (20:30)
[2021-10-25] MEDS: CLONIDINE 0.1MG TABLET PO PRN (20:50)
[2021-10-25] MEDS ORDERED: VANCOMYCIN 750MG PREMIX 150 ML IV SCH (21:00)
[2021-10-25 21:02] LABS: *AMPHETAMINES SCREEN URINE NEGATIVE (NEGATIVE); *BARBITURATES SCREEN URINE NEGATIVE (NEGATIVE); *BENZODIAZEPINES SCREEN URINE NEGATIVE (NEGATIVE); *COCAINE SCREEN URINE NEGATIVE (NEGATIVE); METHADONE URINE SCREEN NEGATIVE (NEGATIVE)
[2021-10-25 21:03] LABS: CANNABINOID URINE SCREEN NEGATIVE (NEGATIVE); OPIATES URINE SCREEN PRESUMTIVE POSITIVE (NEGATIVE); PHENCYCLIDINE URINE SCREEN NEGATIVE (NEGATIVE)
[2021-10-26] VITALS: BP 162/92
[2021-10-26 04:00] VITALS: BP 170/106
[2021-10-26] MEDS ORDERED: DEXT 5%/0.45% NACL 1000ML 1,000 ML IV SCH (04:45)
[2021-10-26] MEDS: MORPHINE SULFATE 2 MG/ML CPJ (NOT FOR IM USE) IV PRN (05:29)
[2021-10-26 05:41] LABS: BASOPHILS % 0.6 % (0.0-2.0); EOSINOPHILS % 1.4 % (0.0-5.0); HEMATOCRIT. 26.3 % (42.0-52.0); HEMOGLOBIN. 9.2 g/dL (14.0-18.0); LYMPHOCYTES % 21.8 % (20.0-50.0); MEAN CORPUSCULAR HEMOGLOBIN 37.5 pg (28.0-32.0); MEAN CORPUSCULAR VOLUME 106.9 fL (80.0-94.0); MEAN PLATELET VOLUME 7.9 fl (7.4-10.4); MONOCYTES % 9.4 % (2.0-8.0); NEUTROPHILS % 66.8 % (40.0-76.0); PLATELET 352 x1000/uL (130-400); RED BLOOD CELL COUNT 2.46 mill/uL (4.7-6.1); RED CELL DISTRIBUTION WIDTH 16.8 % (11.6-14.6)
[2021-10-26] MEDS: CLONIDINE 0.1MG TABLET PO PRN ×2 (06:14→21:05)
[2021-10-26 06:20] LABS: CHLORIDE 110 mEq/L (98-107)
[2021-10-26 06:27] LABS: PHOSPHORUS 2.3 mg/dL (2.5-4.9)
[2021-10-26 07:26] VITALS: BP 167/100
[2021-10-26] MEDS ORDERED: POTASSIUM-SODIUM PHOSPHATE POWDER PACKET PO SCH (08:30)
[2021-10-26] MEDS ORDERED: MAGNESIUM 2 G PREMIX 50 ML IV SCH (09:00)
[2021-10-26] MEDS: AMLODIPINE 10MG TABLET PO SCH (09:09)
[2021-10-26] MEDS: ENOXAPARIN 40MG/0.4ML SYR SUBCUT SCH (09:10)
[2021-10-26] MEDS ORDERED: DIATR MEGLU/DIATRIZOATE SOLN 120ML ONE (09:39)
[2021-10-26] MEDS ORDERED: IOHEXOL-300 100 ML BOTTLE ONE (10:28)
[2021-10-26 10:31] LABS: TOTAL IRON BINDING CAPACITY 160 ug/dL (250-450)
[2021-10-26] MEDS: DEXT 5%/0.45% NACL 1000ML 1,000 ML IV SCH ×2 (10:47→17:58)
[2021-10-26] MEDS: MEROPENEM 1,000 MG in SODIUM CHLORIDE 0.9% 100 ML IV SCH ×2 (10:47→21:04)
[2021-10-26 12:00] VITALS: BP 166/98
[2021-10-26] MEDS: HYDRALAZINE HCL 25MG TABLET PO PRN (13:06)
[2021-10-26 16:00] VITALS: BP 156/98
[2021-10-26 20:00] VITALS: BP 162/100
[2021-10-26] MEDS: MICAFUNGIN 100 MG in SODIUM CHLORIDE 0.9% 100 ML IV SCH (23:57)
[2021-10-27] VITALS (10 sets, daily range): BP systolic 132–170; BP diastolic 80–112
[2021-10-27] MEDS: HYDRALAZINE HCL 25MG TABLET PO PRN (04:49)
[2021-10-27] MEDS: DEXT 5%/0.45% NACL 1000ML 1,000 ML IV SCH ×2 (04:50→16:56)
[2021-10-27] MEDS: HYDROCODONE/ACETAMINOPHEN 5/325MG TABLET PO PRN ×2 (04:50→21:48)
[2021-10-27 06:44] LABS: BASOPHILS % 0.5 % (0.0-2.0); EOSINOPHILS % 1.2 % (0.0-5.0); HEMATOCRIT. 26.6 % (42.0-52.0); HEMOGLOBIN. 9.4 g/dL (14.0-18.0); LYMPHOCYTES % 23.6 % (20.0-50.0); MEAN CORPUSCULAR HEMOGLOBIN 37.3 pg (28.0-32.0); MEAN CORPUSCULAR VOLUME 105.9 fL (80.0-94.0); MONOCYTES % 11.1 % (2.0-8.0); NEUTROPHILS % 63.6 % (40.0-76.0); PLATELET 388 x1000/uL (130-400); RED BLOOD CELL COUNT 2.52 mill/uL (4.7-6.1); RED CELL DISTRIBUTION WIDTH 16.3 % (11.6-14.6)
[2021-10-27 06:56] LABS: CHLORIDE 108 mEq/L (98-107)
[2021-10-27 07:11] LABS: HIV SCREEN 4G Non Reactive (Non Reactive)
[2021-10-27] MEDS: ENOXAPARIN 40MG/0.4ML SYR SUBCUT SCH (09:00)
[2021-10-27] MEDS: AMLODIPINE 10MG TABLET PO SCH (09:00)
[2021-10-27] MEDS ORDERED: SODIUM BICARBONATE 4% (2.4MEQ) 5ML VIAL IV ONE (09:23)
[2021-10-27] MEDS ORDERED: LIDOCAINE HCL 1% 30ML VIAL (10MG/ML) ONE (09:23)
[2021-10-27] MEDS ORDERED: FENTANYL CITRATE/PF 50MCG/ML 2ML VIAL ONE (09:23)
[2021-10-27] MEDS: MEROPENEM 1,000 MG in SODIUM CHLORIDE 0.9% 100 ML IV SCH ×3 (09:23→22:49)
[2021-10-27] MEDS: CLONIDINE 0.1MG TABLET PO PRN ×2 (11:09→22:00)
[2021-10-27] MEDS ORDERED: POTASSIUM CHLORIDE 20MEQ TABLET SR PO NR ×2 (11:30→16:15)
[2021-10-27] MEDS ORDERED: IBUP-2030 MT (11:47)
[2021-10-27] MEDS ORDERED: HYDRALAZINE HCL 25MG TABLET PO SCH (12:00)
[2021-10-27] MEDS ORDERED: HYDRALAZINE HCL 25MG TABLET PO NR (18:30)
[2021-10-27] MEDS: MICAFUNGIN 100 MG in SODIUM CHLORIDE 0.9% 100 ML IV SCH (21:36)
[2021-10-27] MEDS: HYDRALAZINE HCL 50MG TABLET PO SCH (21:36)
[2021-10-28] VITALS: BP 130/85
[2021-10-28] MEDS: DEXT 5%/0.45% NACL 1000ML 1,000 ML IV SCH ×2 (03:22→10:45)
[2021-10-28 04:00] VITALS: BP 137/87
[2021-10-28] MEDS: HYDRALAZINE HCL 50MG TABLET PO SCH (06:09)
[2021-10-28] MEDS: MEROPENEM 1,000 MG in SODIUM CHLORIDE 0.9% 100 ML IV SCH ×3 (06:09→22:00)
[2021-10-28 06:29] LABS: CHLORIDE 108 mEq/L (98-107)
[2021-10-28 06:32] LABS: BASOPHILS % 0.5 % (0.0-2.0); EOSINOPHILS % 1.1 % (0.0-5.0); HEMATOCRIT. 29.2 % (42.0-52.0); HEMOGLOBIN. 10.3 g/dL (14.0-18.0); LYMPHOCYTES % 28.3 % (20.0-50.0); MEAN CORPUSCULAR HEMOGLOBIN 37.4 pg (28.0-32.0); MEAN PLATELET VOLUME 8.4 fl (7.4-10.4); MONOCYTES % 11.2 % (2.0-8.0); NEUTROPHILS % 58.9 % (40.0-76.0); PLATELET 432 x1000/uL (130-400); RED BLOOD CELL COUNT 2.75 mill/uL (4.7-6.1); RED CELL DISTRIBUTION WIDTH 15.8 % (11.6-14.6)
[2021-10-28 06:40] LABS: PHOSPHORUS 1.6 mg/dL (2.5-4.9)
[2021-10-28] MEDS: AMLODIPINE 10MG TABLET PO SCH (08:45)
[2021-10-28] MEDS: ENOXAPARIN 40MG/0.4ML SYR SUBCUT SCH (08:46)
[2021-10-28] MEDS ORDERED: HYDRALAZINE 20MG/ML VIAL IV PRN (09:15)
[2021-10-28] MEDS ORDERED: LABETALOL 5MG/ML SYR 20 MG/4 ML SYRINGE IV PRN (09:15)
[2021-10-28] MEDS ORDERED: HYDRALAZINE 10 MG in SODIUM CHLORIDE 0.9% 49.5 ML IV PRN (09:30)
[2021-10-28] MEDS: ISOSORBIDE DINITRATE 20MG TABLET PO SCH ×3 (10:03→17:00)
[2021-10-28] MEDS ORDERED: SODIUM BICARBONATE 4% (2.4MEQ) 5ML VIAL IV ONE (11:10)
[2021-10-28] MEDS ORDERED: LIDOCAINE HCL 1% 30ML VIAL (10MG/ML) ONE (11:11)
[2021-10-28] MEDS ORDERED: FENTANYL CITRATE/PF 50MCG/ML 2ML VIAL ONE (11:11)
[2021-10-28] MEDS: HYDRALAZINE HCL 100MG TABLET PO SCH ×2 (13:55→23:05)
[2021-10-28] MEDS ORDERED: MAGNESIUM 2 G PREMIX 50 ML IV SCH (15:00)
[2021-10-28] MEDS ORDERED: POTASSIUM PHOS,M-BASIC-D-BASIC 30 MMOL in DEXT 5% WATER 500 ML IV SCH (15:00)
[2021-10-28 20:00] VITALS: BP 135/73
[2021-10-28] MEDS: MORPHINE SULFATE 2 MG/ML CPJ (NOT FOR IM USE) IV PRN (21:16)
[2021-10-28] MEDS: MICAFUNGIN 100 MG in SODIUM CHLORIDE 0.9% 100 ML IV SCH (22:00)
[2021-10-29] VITALS: BP 146/91
[2021-10-29 04:00] VITALS: BP 154/99
[2021-10-29] MEDS: CLONIDINE 0.1MG TABLET PO PRN (04:54)
[2021-10-29] MEDS: DEXT 5%/0.45% NACL 1000ML 1,000 ML IV SCH ×3 (05:43→17:43)
[2021-10-29] MEDS: MEROPENEM 1,000 MG in SODIUM CHLORIDE 0.9% 100 ML IV SCH ×3 (06:02→21:20)
[2021-10-29] MEDS: HYDRALAZINE HCL 100MG TABLET PO SCH ×3 (06:02→21:20)
[2021-10-29 06:41] LABS: BASOPHILS % 0.6 % (0.0-2.0); EOSINOPHILS % 0.9 % (0.0-5.0); HEMATOCRIT. 31.2 % (42.0-52.0); HEMOGLOBIN. 10.5 g/dL (14.0-18.0); LYMPHOCYTES % 20.9 % (20.0-50.0); MEAN CORPUSCULAR VOLUME 106.6 fL (80.0-94.0); MEAN PLATELET VOLUME 8.9 fl (7.4-10.4); MONOCYTES % 11.3 % (2.0-8.0); NEUTROPHILS % 66.3 % (40.0-76.0); PLATELET 458 x1000/uL (130-400); RED BLOOD CELL COUNT 2.93 mill/uL (4.7-6.1); RED CELL DISTRIBUTION WIDTH 16.3 % (11.6-14.6)
[2021-10-29 06:43] LABS: CHLORIDE 106 mEq/L (98-107)
[2021-10-29 08:00] VITALS: BP 135/94
[2021-10-29] MEDS: AMLODIPINE 10MG TABLET PO SCH ×2 (09:06→17:37)
[2021-10-29] MEDS: ISOSORBIDE DINITRATE 20MG TABLET PO SCH ×3 (09:07→17:36)
[2021-10-29 12:00] VITALS: BP 121/76
[2021-10-29] MEDS ORDERED: MAGNESIUM 2 G PREMIX 50 ML IV NR (12:30)
[2021-10-29] MEDS: ENOXAPARIN 40MG/0.4ML SYR SUBCUT SCH (12:30)
[2021-10-29 16:00] VITALS: BP 117/71
[2021-10-29 20:00] VITALS: BP 129/79
[2021-10-29] MEDS: MICAFUNGIN 100 MG in SODIUM CHLORIDE 0.9% 100 ML IV SCH (23:19)
[2021-10-30] VITALS: BP 128/79
[2021-10-30 04:00] VITALS: BP 140/93
[2021-10-30] MEDS: MEROPENEM 1,000 MG in SODIUM CHLORIDE 0.9% 100 ML IV SCH ×3 (06:14→21:18)
[2021-10-30] MEDS: HYDRALAZINE HCL 100MG TABLET PO SCH ×3 (06:15→21:18)
[2021-10-30] MEDS: DEXT 5%/0.45% NACL 1000ML 1,000 ML IV SCH (06:21)
[2021-10-30 07:42] LABS: BASOPHILS % 0.7 % (0.0-2.0); EOSINOPHILS % 1.1 % (0.0-5.0); HEMOGLOBIN. 9.5 g/dL (14.0-18.0); MEAN CORPUSCULAR HEMOGLOBIN 37.1 pg (28.0-32.0); MEAN CORPUSCULAR VOLUME 105.2 fL (80.0-94.0); MEAN PLATELET VOLUME 8.7 fl (7.4-10.4); MONOCYTES % 12.2 % (2.0-8.0); PLATELET 474 x1000/uL (130-400); RED BLOOD CELL COUNT 2.57 mill/uL (4.7-6.1); RED CELL DISTRIBUTION WIDTH 16.6 % (11.6-14.6)
[2021-10-30 07:57] LABS: CHLORIDE 109 mEq/L (98-107)
[2021-10-30 08:00] VITALS: BP 129/73
[2021-10-30] MEDS: ISOSORBIDE DINITRATE 20MG TABLET PO SCH ×3 (09:31→18:16)
[2021-10-30] MEDS: AMLODIPINE 10MG TABLET PO SCH ×2 (09:31→21:18)
[2021-10-30] MEDS: ENOXAPARIN 40MG/0.4ML SYR SUBCUT SCH (09:32)
[2021-10-30] MEDS ORDERED: LORAZEPAM 2MG/ML CPJ IV PRN (11:30)
[2021-10-30 12:00] VITALS: BP 121/75
[2021-10-30 16:00] VITALS: BP 118/71
[2021-10-30] MEDS: ACETAMINOPHEN 650MG/20.3ML UDC GT PRN (18:16)
[2021-10-30 20:00] VITALS: BP 134/84
[2021-10-30] MEDS: MICAFUNGIN 100 MG in SODIUM CHLORIDE 0.9% 100 ML IV SCH (22:45)
[2021-10-31] VITALS (11 sets, daily range): BP systolic 111–150; BP diastolic 65–98
[2021-10-31] MEDS: DEXT 5%/0.45% NACL 1000ML 1,000 ML IV SCH ×2 (00:36→13:16)
[2021-10-31 05:59] LABS: CHLORIDE 107 mEq/L (98-107)
[2021-10-31] MEDS: HYDRALAZINE HCL 100MG TABLET PO SCH ×3 (06:00→21:18)
[2021-10-31 06:02] LABS: PARTIAL THROMBOPLASTIN TIME 33.2 sec (23.4-31.0); PROTHROMBIN TIME 11.1 sec (9.6-11.0)
[2021-10-31 06:06] LABS: PHOSPHORUS 2.2 mg/dL (2.5-4.9)
[2021-10-31 06:14] LABS: BASOPHILS % 0.8 % (0.0-2.0); EOSINOPHILS % 1.6 % (0.0-5.0); HEMATOCRIT. 26.5 % (42.0-52.0); HEMOGLOBIN. 9.3 g/dL (14.0-18.0); LYMPHOCYTES % 23.1 % (20.0-50.0); MEAN CORPUSCULAR HEMOGLOBIN 36.8 pg (28.0-32.0); MEAN CORPUSCULAR VOLUME 104.9 fL (80.0-94.0); MEAN PLATELET VOLUME 8.6 fl (7.4-10.4); MONOCYTES % 13.2 % (2.0-8.0); NEUTROPHILS % 61.3 % (40.0-76.0); PLATELET 518 x1000/uL (130-400); RED BLOOD CELL COUNT 2.53 mill/uL (4.7-6.1)
[2021-10-31] MEDS: MEROPENEM 1,000 MG in SODIUM CHLORIDE 0.9% 100 ML IV SCH ×3 (06:35→21:04)
[2021-10-31] MEDS ORDERED: HYDRALAZINE HCL 100MG TABLET PO NR (09:00)
[2021-10-31] MEDS ORDERED: MIDAZOLAM HCL 2 MG/2 ML VIAL ONE (09:21)
[2021-10-31] MEDS ORDERED: FENTANYL CITRATE/PF 50MCG/ML 2ML VIAL ONE (09:21)
[2021-10-31] MEDS: AMLODIPINE 10MG TABLET PO SCH ×2 (09:25→21:05)
[2021-10-31] MEDS ORDERED: LIDOCAINE HCL 1% 30ML VIAL (10MG/ML) ONE (09:34)
[2021-10-31] MEDS ORDERED: SODIUM BICARBONATE 4% (2.4MEQ) 5ML VIAL IV ONE (09:35)
[2021-10-31] MEDS ORDERED: FENTANYL CITRATE/PF 50MCG/ML 2ML VIAL IV ONE (10:00)
[2021-10-31] MEDS ORDERED: POTASSIUM-SODIUM PHOSPHATE POWDER PACKET PO NR (10:00)
[2021-10-31] MEDS: ISOSORBIDE DINITRATE 20MG TABLET PO SCH ×3 (10:00→18:17)
[2021-10-31] MEDS ORDERED: MIDAZOLAM HCL 2 MG/2 ML VIAL IV NR (10:00)
[2021-10-31] MEDS ORDERED: MAGNESIUM 2 G PREMIX 50 ML IV NR (11:00)
[2021-10-31] MEDS: ENOXAPARIN 40MG/0.4ML SYR SUBCUT SCH (12:58)
[2021-10-31] MEDS: ACETAMINOPHEN 650MG/20.3ML UDC GT PRN (13:17)
[2021-10-31] MEDS ORDERED: HYDROCODONE/ACETAMINOPHEN 5/325MG TABLET PO PRN (14:30)
[2021-10-31] MEDS ORDERED: LACTULOSE 20G/30ML UDC PO NR (15:15)
[2021-10-31] MEDS ORDERED: SENNOSIDES 8.6MG TABLET PO PRN (15:15)
[2021-10-31] MEDS: DOCUSATE SODIUM 100MG CAPSULE PO SCH (18:00)
[2021-10-31] MEDS ORDERED: ACETAMINOPHEN 650MG/20.3ML UDC GT PRN (20:15)
[2021-10-31] MEDS: MICAFUNGIN 100 MG in SODIUM CHLORIDE 0.9% 100 ML IV SCH (23:44)
[2021-11-01] VITALS: BP 130/82
[2021-11-01 04:00] VITALS: BP 138/80
[2021-11-01] MEDS: HYDRALAZINE HCL 100MG TABLET PO SCH (06:14)
[2021-11-01] MEDS: MEROPENEM 1,000 MG in SODIUM CHLORIDE 0.9% 100 ML IV SCH ×2 (06:15→13:30)
[2021-11-01 06:49] LABS: HEMATOCRIT. 27.3 % (42.0-52.0); HEMOGLOBIN. 9.7 g/dL (14.0-18.0); MEAN CORPUSCULAR HEMOGLOBIN 37.1 pg (28.0-32.0); MEAN CORPUSCULAR VOLUME 104.1 fL (80.0-94.0); MEAN PLATELET VOLUME 7.8 fl (7.4-10.4); PLATELET 583 x1000/uL (130-400); RED BLOOD CELL COUNT 2.62 mill/uL (4.7-6.1); RED CELL DISTRIBUTION WIDTH 16.8 % (11.6-14.6)
[2021-11-01 07:02] LABS: CHLORIDE 104 mEq/L (98-107)
[2021-11-01 07:19] LABS: PHOSPHORUS 2.4 mg/dL (2.5-4.9)
[2021-11-01 07:23] LABS: HAPTOGLOBIN 389 mg/dL (30-200)
[2021-11-01] MEDS ORDERED: CYANOCOBALAMIN 1000MCG TABLET PO SCH (07:50)
[2021-11-01 08:00] VITALS: BP 145/91
[2021-11-01] MEDS: AMLODIPINE 10MG TABLET PO SCH (08:16)
[2021-11-01] MEDS: ENOXAPARIN 40MG/0.4ML SYR SUBCUT SCH (08:16)
[2021-11-01] MEDS: ISOSORBIDE DINITRATE 20MG TABLET PO SCH ×2 (08:17→13:31)
[2021-11-01] MEDS: DOCUSATE SODIUM 100MG CAPSULE PO SCH (08:17)
[2021-11-01] MEDS ORDERED: FOLIC ACID 1MG TABLET PO SCH (09:00)
[2021-11-01] MEDS ORDERED: NA PHOS,M-B/NA PHOS,DI-BA ENEMA 118ML PR NR (09:30)
[2021-11-01] MEDS ORDERED: CYAN-50 PO (09:37)
[2021-11-01] MEDS ORDERED: POLY119P2 MT (09:37)
[2021-11-01] MEDS ORDERED: HYDR100T26 PO (09:37)
[2021-11-01] MEDS ORDERED: AMLO10TA80 PO (09:37)
[2021-11-01] MEDS ORDERED: FOLI-43 PO (09:37)
[2021-11-01] MEDS ORDERED: SENNOSIDES 8.6MG TABLET PO SCH (09:38)
[2021-11-01] MEDS ORDERED: NA PHOS,M-B/NA PHOS,DI-BA ENEMA 118ML PR ONE (09:45)
[2021-11-01 12:00] VITALS: BP 135/76
[2021-11-01 12:01] LABS: PLATELET ESTIMATE INCREASED
[2021-11-01] MEDS ORDERED: NICO-645 TP (12:52)
[2021-11-01] MEDS ORDERED: NICO2GUM38 MT (12:52)
[2021-11-01] MEDS ORDERED: HYDRALAZINE HCL 100MG TABLET PO SCH (17:00)
== END 2021-11-01 15:39 | disposition home health service (06) | DRG 463 ==
LOC: ER 17:00 → 6EST 10-24 02:23 → SUPCPDRO 10-24 08:13 → ENRESERV 10-24 21:17
PROVIDERS: ADMIT Internal Medicine; ATTEND Internal Medicine
PROC: 0TJ53ZZ Inspection of Kidney, Percutaneous Approach (ICD-10-PCS; principal; 2021-10-31)
DX: N13.6 Pyonephrosis (principal); K85.90 Acute pancreatitis without necrosis or infection, unspecified; E43 Unspecified severe protein-calorie malnutrition; N17.9 Acute kidney failure, unspecified; I82.622 Acute embolism and thrombosis of deep veins of left upper extremity; E83.39 Other disorders of phosphorus metabolism; F10.10 Alcohol abuse, uncomplicated; D50.9 Iron deficiency anemia, unspecified; N15.1 Renal and perinephric abscess; D53.9 Nutritional anemia, unspecified; I10 Essential (primary) hypertension; I16.0 Hypertensive urgency; K86.1 Other chronic pancreatitis; M10.9 Gout, unspecified; K92.1 Melena; Z20.822 Contact with and (suspected) exposure to COVID-19; J45.909 Unspecified asthma, uncomplicated; D72.821 Monocytosis (symptomatic); R25.1 Tremor, unspecified; E83.42 Hypomagnesemia; N18.9 Chronic kidney disease, unspecified; I12.9 Hypertensive chronic kidney disease with stage 1 through stage 4 chronic kidney disease, or unspecified chronic kidney disease; Z82.49 Family history of ischemic heart disease and other diseases of the circulatory system; Z87.891 Personal history of nicotine dependence; Z79.899 Other long term (current) drug therapy; Z68.22 Body mass index [BMI] 22.0-22.9, adult
CPT/HCPCS: 36415; 74150; 74176; 74177; 77012; 80048; 80053; 80305; 80320; 81003; 82270; 82550; 82607; 82728; 82746; 82962; 83010; 83540; 83550; 83615; 83735; 84100; 84145; 85025; 85044; 86880; 87389; 87426; 93005; 93971; 99285; C1893; J1650; J1885; J2060; J2185; J2248; J2250; J2270; J2405; J2543; J3010; J3370; J3475; J3490; J7030; J7042; J7050; J7060; Q9963; Q9967; G0480

== ENCOUNTER 2024-09-08 03:08 | Emergency (ER) | payer MEDICAID ==
[~2024-09-08] VITALS: Ht 172.7 cm; Wt 52.1 kg
[~2024-09-08 03:08] MED LIST changes: +AMLO10TA80 PO; +AMYL1CAP59 PO; +ATOR20TA MT; -AZIT500T2 MT; +CYAN-50 PO; +FOLI-43 PO; +HYDR100T11 PO; +HYDR50TA39 PO; +IBUP-2030 PO; +METO-539 PO; +NICO-645 TP; +NICO2GUM38 MT; -OLME40TA18 PO; +ONDA4TAB50 MT; +POLY119P2 MT; +PROT40 PO; +THIA100T72 PO
[2024-09-08 03:26] VITALS: O2SAT 99
[2024-09-08] MEDS ORDERED: IBUP-2028 MT (04:30)
[2024-09-08] MEDS ORDERED: ALLO100T MT (04:30)
[2024-09-08] MEDS ORDERED: COLC0.6C3 MT (04:30)
[2024-09-08 04:51] VITALS: BP 134/98; PULSE 82; RESP 19; TEMP 36.61404; O2SAT 99
== END 2024-09-08 04:54 | disposition home or self-care (01) ==
LOC: ER 03:08
DX: M10.9 Gout, unspecified (principal); I10 Essential (primary) hypertension; Z79.899 Other long term (current) drug therapy; F10.20 Alcohol dependence, uncomplicated; Y90.9 Presence of alcohol in blood, level not specified
CPT/HCPCS: 99281